=== PATIENT | female | born 1940 | race Caucasian/White ===

== ENCOUNTER 2018-11-04 07:50 | Inpatient (IN) | payer MEDICARE, BC ==
[~2018-11-04] VITALS: Ht 160 cm; Wt 80.2 kg
[2018-11-04] MEDS: NS + 20MEQ KCL 1,000 ML IV SCH ×2 (06:20→18:50)
[2018-11-04] MEDS: TEMPLATE NON-FORMULARY MED. (Albuterol Sulfate (Ventolin Hfa) 2 PUFF(S)) IH SCH ×2 (06:30→10:30)
[2018-11-04] MEDS: CEFAZOLIN PMX 2GM/50ML 50 ML IVPB SCH ×2 (06:30→20:05)
[~2018-11-04 07:50] MED LIST: ACETAMINOPHEN 650 MG/20.3 ML UDC PO PRN; ALBU18HF IH; ATOR10TA9 PO; BISACODYL 10 MG SUPP PR PRN; CALC1TAB PO; CHOL100015 PO; D-ME118S2 PO; DIPHENHYDRAMINE 25 MG CAPSULE PO PRN; DOCU100C33 PO; ERGO500017 PO; ESCI20TA10 PO; FENO145T32 PO; FLUT1DIS3 INH; GUAI-103 PO; HYDR200T72 PO; HYDROmorphone 2 MG/ML, 1ML IV PRN; LANS15CA PO; MAGNESIUM HYDROXIDE 8%, 30ML UDC PO PRN; METO25TA35 PO; ONDA4TAB7 PO; ONDANSETRON 2MG/ML, 2ML IV PRN; ONDANSETRON 4 MG TABLET PO PRN; OXYcodone IR 5MG TABLET PO PRN; PRAM0.255 PO; RALO60TA PO; RANI150C PO; RIVA20TA PO; SCOPOLAMINE PATCH, 1.5MG PATCH.TD72 TD ONE; SENNA/DOCUSATE TABLET PO PRN; SUCR1ORA5 PO; SUCRALFATE 1 GM/10 ML UDC PO PRN; TIOT18CA INH; TRAM50TA2 PO; WHEA1POW5 PO; ZOLP-413 PO; ZOLPIDEM 5MG TABLET PO PRN
[2018-11-04 08:26] VITALS: BP 124/74
[2018-11-04] MEDS ORDERED: RALO60TA PO (08:39)
[2018-11-04] MEDS ORDERED: ALPR0.25 PO (08:54)
[2018-11-04] MEDS ORDERED: GABAPENTIN 300 MG CAPSULE PO ONE (09:00)
[2018-11-04] MEDS ORDERED: TEMPLATE NON-FORMULARY MED. (Fluticasone/Salmeterol** (Advair 250-50 Diskus**) 1 PUFF) INH SCH (09:00)
[2018-11-04] MEDS ORDERED: TEMPLATE NON-FORMULARY MED. (Tiotropium Bromide** (Spiriva**) 18 MCG) INH SCH (09:00)
[2018-11-04] MEDS: PRAMIPEXOLE 0.25MG TABLET PO SCH (09:00)
[2018-11-04] MEDS: DOCUSATE 100 MG CAPSULE PO SCH ×2 (09:00→20:06)
[2018-11-04] MEDS: METOPROLOL TARTRATE 25 MG TABLET PO SCH ×2 (09:00→20:06)
[2018-11-04] MEDS ORDERED: LANSOPRAZOLE 30 MG PO SCH (09:00)
[2018-11-04] MEDS: RALOXIFENE 60 MG TABLET PO SCH (09:00)
[2018-11-04] MEDS ORDERED: TEMPLATE NON-FORMULARY MED. (Guaifenesin/Pseudoephedrne Hcl** (Mucinex D Er Tablet**) 1 TA PO SCH (09:00)
[2018-11-04] MEDS: FENOFIBRATE 145 MG TABLET PO SCH (09:00)
[2018-11-04] MEDS ORDERED: ESCITALOPRAM OXALATE 40 MG PO SCH (09:00)
[2018-11-04] MEDS: LACTATED RINGERS 1,000 ML IV SCH ×2 (09:11→14:23)
[2018-11-04] MEDS ORDERED: ACETAMINOPHEN 500 MG TABLET PO ONE (10:00)
[2018-11-04] MEDS ORDERED: FENTANYL PF 250 MCG/5ML ONE (10:17)
[2018-11-04] MEDS ORDERED: MIDAZOLAM 1 MG/ML, 2ML ONE (10:17)
[2018-11-04] MEDS ORDERED: LORazepam 2 MG/ML, 1ML IVPush PRN (11:30)
[2018-11-04] MEDS ORDERED: LABETALOL 5MG/ML, 20ML IV PRN (11:30)
[2018-11-04] MEDS ORDERED: OXYcodone 5 MG/5 ML ORAL.SOL UDC PO PRN (11:30)
[2018-11-04] MEDS ORDERED: MEPERIDINE/PF 25MG/0.5ML IVPush PRN (11:30)
[2018-11-04] MEDS ORDERED: ALBUTEROL/IPRATROPIUM 2.5MG/0.5MG, 3 ML NPPB PRN (11:30)
[2018-11-04] MEDS ORDERED: METOCLOPRAMIDE 5 MG/ML, 2ML IV PRN (11:30)
[2018-11-04] MEDS ORDERED: METOPROLOL 1 MG/ML, 5ML IV PRN (11:30)
[2018-11-04] MEDS ORDERED: hydrALAzine 20 MG/ML, 1ML IV PRN (11:30)
[2018-11-04] MEDS ORDERED: FENTANYL PF 100 MCG/2ML ONE (12:55)
[2018-11-04] MEDS ORDERED: OXYcodone 5 MG/5 ML ORAL.SOL UDC ONE (12:56)
[2018-11-04] MEDS ORDERED: HYDROmorphone 2 MG/ML, 1ML ONE (13:00)
[2018-11-04] MEDS ORDERED: TRANEXAMIC ACID 100 MG/ML, 10ML IVPB ONE (13:00)
[2018-11-04] MEDS: HYDROmorphone 2 MG/ML, 1ML IVPush PRN ×4 (13:02→13:25)
[2018-11-04] MEDS: FENTANYL PF 100 MCG/2ML IV PRN ×3 (13:02→13:25)
[2018-11-04] MEDS ORDERED: TRANEXAMIC ACID 1,000 MG in SODIUM CHLORIDE 0.9% 100 ML IVPB ONE (13:30)
[2018-11-04] MEDS ORDERED: MEPERIDINE/PF 25MG/ML,1ML ONE (13:31)
[2018-11-04] MEDS ORDERED: ESCITALOPRAM 10MG TABLET PO SCH (14:38)
[2018-11-04] MEDS: ALBUTEROL SULFATE IH SCH ×3 (14:38→22:38)
[2018-11-04] MEDS ORDERED: (Fluticasone/Salmeterol** (Advair 250-50 Diskus**) 1 PUFF) INH SCH (14:38)
[2018-11-04] MEDS ORDERED: GLYCOPYRROLATE 0.2MG/1ML, 5ML ONE (15:03)
[2018-11-04] MEDS ORDERED: PROPOFOL 10 MG/ML, 20ML ONE (15:03)
[2018-11-04] MEDS ORDERED: ONDANSETRON 2MG/ML, 2ML ONE (15:03)
[2018-11-04] MEDS ORDERED: DEXAMETHASONE 4 MG/ML, 1ML ONE (15:03)
[2018-11-04] MEDS ORDERED: ROCURONIUM 10MG/ML,5ML ONE (15:03)
[2018-11-04] MEDS ORDERED: CEFAZOLIN 1,000 MG ONE (15:03)
[2018-11-04] MEDS ORDERED: NEOSTIGMINE 1 MG/ML, 10ML ONE (15:03)
[2018-11-04 18:34] VITALS: BP 96/59
[2018-11-04] MEDS: HYDROcodone/APAP 5/325 TABLET PO PRN (20:32)
[2018-11-04] MEDS ORDERED: HYDROXYCHLOROQUINE 200 MG TABLET PO SCH (21:00)
[2018-11-04] MEDS ORDERED: ZOLPIDEM 5MG TABLET PO SCH (21:00)
[2018-11-04] MEDS ORDERED: ATORVASTATIN 10 MG TABLET PO SCH (21:00)
[2018-11-05 00:30] VITALS: BP 104/63
[2018-11-05] MEDS: HYDROcodone/APAP 5/325 TABLET PO PRN (00:57)
[2018-11-05] MEDS: ALBUTEROL SULFATE IH SCH ×2 (02:38→06:38)
[2018-11-05] MEDS ORDERED: DEXAMETHASONE 4 MG/ML, 1ML IVPush SCH (06:00)
[2018-11-05] MEDS ORDERED: ENOXAPARIN 40 MG/0.4 ML SQ SCH (06:30)
[2018-11-05] MEDS: NS + 20MEQ KCL 1,000 ML IV SCH (07:11)
[2018-11-05 07:30] VITALS: BP 114/59
[2018-11-05] MEDS ORDERED: PRAMIPEXOLE 0.5MG TABLET ONE (08:01)
[2018-11-05] MEDS: PRAMIPEXOLE 0.25MG TABLET PO SCH (08:12)
[2018-11-05] MEDS: METOPROLOL TARTRATE 25 MG TABLET PO SCH (08:12)
[2018-11-05] MEDS: DOCUSATE 100 MG CAPSULE PO SCH (08:12)
[2018-11-05] MEDS: FENOFIBRATE 145 MG TABLET PO SCH (08:12)
[2018-11-05] MEDS: RALOXIFENE 60 MG TABLET PO SCH (08:12)
[2018-11-05] MEDS ORDERED: OXYC5TAB3 PO (08:28)
[2018-11-05] MEDS ORDERED: TRAM50TA2 PO (08:29)
== END 2018-11-05 10:53 | disposition home or self-care (01) | DRG 469 ==
LOC: OUT 07:50 → ORIP 11:00 → 4NOR 14:05 → DCLOUNGE 11-05 10:31
PROVIDERS: ADMIT Orthopaedic Surgery; ATTEND Orthopaedic Surgery
PROC: 5A09357 Assistance with Respiratory Ventilation, Less than 24 Consecutive Hours, Continuous Positive Airway Pressure (ICD-10-PCS; 2018-11-04)
PROC: 0SRB06A Replacement of Left Hip Joint with Oxidized Zirconium on Polyethylene Synthetic Substitute, Uncemented, Open Approach (ICD-10-PCS; principal; 2018-11-04 11:00)
DX: M16.12 Unilateral primary osteoarthritis, left hip (principal); J96.00 Acute respiratory failure, unspecified whether with hypoxia or hypercapnia; Z96.642 Presence of left artificial hip joint; I25.10 Atherosclerotic heart disease of native coronary artery without angina pectoris; G47.30 Sleep apnea, unspecified; M32.9 Systemic lupus erythematosus, unspecified; Z88.8 Allergy status to other drugs, medicaments and biological substances; Z88.0 Allergy status to penicillin; Z88.2 Allergy status to sulfonamides; Z91.81 History of falling; Z86.718 Personal history of other venous thrombosis and embolism; Z82.49 Family history of ischemic heart disease and other diseases of the circulatory system; Z82.61 Family history of arthritis; Z79.01 Long term (current) use of anticoagulants
CPT/HCPCS: 36415; 72170; 76000; 85014; 85018; C1713; G0378; J0690; J1100; J1170; J1650; J2175; J2250; J2405; J2704; J2710; J3010; C1776; J7120